=== PATIENT | female | born 1995 | race Caucasian/White ===

== ENCOUNTER 2016-08-30 11:32 | Emergency (ER) | payer OTHER ==
[2016-08-30 12:23] VITALS: BP 103/67
--- NOTE | 2016-08-30 12:43 | ED ---
Throat Pain/Nasal Congestion - HPI Summary HPI Summary: 21 yr old with 3 weeks of post nasal drip, cough and now frontal sinus pressure and pain. She has pain that is moderate behind right frontal sinus area. Pain is 4/10, and has been present now for three days, and prior to this post nasal drip and cough for a few weeks. No fever, no photophobia. - History of Current Complaint Chief Complaint: UCRespiratory Time Seen by Provider: 08/30/16 12:31 - Allergies/Home Medications Allergies/Adverse Reactions: Allergies Allergy/AdvReac Type Severity Reaction Status Date / Time No Known Allergies Allergy Verified 08/30/16 12:23 PMH/Surg Hx/FS Hx/Imm Hx Previously Healthy: Yes Infectious Disease History: No Infectious Disease History: Reports: Traveled Outside the [place] in Last 30 Days - [place] 08/2016 - Family History Known Family History: Positive: Hypertension Negative: Cardiac Disease, Diabetes - Social History Alcohol Use: Weekly Substance Use Type: Reports: Marijuana Smoking Status (MU): Never Smoked Tobacco Review of Systems Constitutional: Negative Negative: Fever, Chills Negative: Photophobia Positive: Nasal Discharge, Other - sinus pain Positive: Cough Gastrointestinal: Negative Genitourinary: Negative Musculoskeletal: Negative Skin: Negative All Other Systems Reviewed And Are Negative: Yes Physical Exam Triage Information Reviewed: Yes Vital Signs On Initial Exam: Initial Vitals Temp Pulse Resp BP Pulse Ox 97.9 F 72 16 103/67 100 08/30/16 12:20 08/30/16 12:20 08/30/16 12:20 08/30/16 12:20 08/30/16 12:20 Vital Signs Reviewed: Yes Appearance: Positive: Well-Appearing, No Pain Distress Skin: Positive: Warm Head/Face: Positive: Normal Head/Face Inspection Eyes: Positive: Normal, EOMI ENT: Positive: Normal ENT inspection, Other - tender right frontal sinus area on percussion Neck: Positive: Supple Respiratory/Lung Sounds: Positive: Clear to Auscultation, Breath Sounds Present Cardiovascular: Positive: Normal, RRR. Negative: Murmur Abdomen Description: Negative: Distended Musculoskeletal: Positive: Normal, Strength/ROM Intact Neurological: Positive: Normal, Sensory/Motor Intact, Alert, Oriented to Person Place, Time, CN Intact II-III Psychiatric: Positive: Normal Diagnostics - Vital Signs Vital Signs Temp Pulse Resp BP Pulse Ox 08/30/16 12:20 97.9 F 72 16 103/67 100 - Laboratory Lab Statement: Any lab studies that have been ordered have been reviewed, and results considered in the medical decision making process. EENT Course/Dx - Course Course Of Treatment: 21 yr old female with a few weeks of post nasal drip and now sinus pain, RX with Augmentin. [facility] office. - Diagnoses Provider Diagnoses: Sinusitis Discharge - Discharge Plan Condition: Good Disposition: HOME Prescriptions: Amoxicillin/Clavulanate TAB* [Augmentin TAB 875*] 875 mg PO BID #20 tab Patient Education Materials: Sinusitis (ED) Referrals: Non Staff,Doctor [Primary Care Provider] - [facility] [place] [facility]IAN REFERRAL [Outside]
== END 2016-08-30 12:50 | disposition home or self-care (01) ==
LOC: UCCORT 11:32
DX: J32.9 Chronic sinusitis, unspecified (principal)
CPT/HCPCS: 99212; G0463

== ENCOUNTER 2016-09-17 17:36 | Emergency (ER) | payer OTHER ==
[2016-09-17 17:53] VITALS: BP 115/57
--- NOTE | 2016-09-17 19:01 | UC ---
Throat Pain/Nasal [place] HPI - HPI Summary HPI Summary: 21 yo female with burning pain from sternum to throat vomited twice last PM had three beers and 2 shots (mixed with energy drink) no f/c - History of Current Complaint Chief Complaint: UCGeneralIllness Stated Complaint: PT STATES THROAT FELLS SWOLLEN Time Seen by Provider: 09/17/16 18:46 Hx Obtained From: Patient Hx Last Menstrual Period: 09/01/16 Onset/Duration: Gradual Onset, Lasting Hours Severity: Moderate Pain Intensity: 4 Pain Scale Used: 0-10 Numeric Cough: None - Allergies/Home Medications Allergies/Adverse Reactions: Allergies Allergy/AdvReac Type Severity Reaction Status Date / Time No Known Allergies Allergy Verified 09/17/16 17:53 Home Medications: Home Medications NK [No Home Medications Reported] 09/17/16 [History Confirmed 09/17/16] PMH/Surg Hx/FS Hx/Imm Hx Previously Healthy: Yes - Surgical History Surgical History: None - Family History Known Family History: Positive: Hypertension Negative: Cardiac Disease, Diabetes - Social History Alcohol Use: Weekly Substance Use Type: Marijuana Smoking Status (MU): Never Smoked Tobacco Review of Systems Constitutional: Negative Skin: Negative Eyes: Negative ENT: Negative Respiratory: Negative Cardiovascular: Chest Pain - burning Gastrointestinal: Negative Genitourinary: Negative Motor: Negative Neurovascular: Negative Musculoskeletal: Negative Neurological: Negative Psychological: Negative All Other Systems Reviewed And Are Negative: Yes Physical Exam Triage Information Reviewed: Yes Appearance: Well-Appearing, No Pain Distress, Well-Nourished Vital Signs: Initial Vital Signs Temp 98.5 F 09/17/16 17:49 Pulse 80 09/17/16 17:49 Resp 17 09/17/16 17:49 BP 115/57 09/17/16 17:49 Pulse Ox 100 09/17/16 17:49 Vital Signs Reviewed: Yes Eyes: Positive: Conjunctiva Clear ENT: Positive: Hearing grossly normal, Other: - hoarse. Negative: Nasal congestion, TMs normal, Tonsillar exudate, Trismus Neck: Positive: Supple, Nontender Respiratory: Positive: Lungs clear, Normal breath sounds, No respiratory distress Cardiovascular: Positive: RRR, No Murmur Abdomen Description: Positive: Nontender, No Organomegaly, Soft Musculoskeletal: Positive: Strength Intact, ROM Intact Neurological: Positive: Alert Psychological Exam: Normal Skin Exam: Normal Throat Pain/Nasal Course/Dx - Differential Dx/Diagnosis Provider Diagnoses: GERD Discharge - Discharge Plan Condition: Stable Disposition: HOME Patient Education Materials: Gastroesophageal Reflux Disease (ED) Referrals: Non Staff,Doctor [Primary Care Provider] - Additional Instructions: mylanta 30 cc (2 tablespoons) every 2 hours while awake for 2-3 days recheck if not better in 3-6 days avoid caffeine/alcohol for now
== END 2016-09-17 19:03 | disposition home or self-care (01) ==
LOC: UCCORT 17:36
DX: K21.9 Gastro-esophageal reflux disease without esophagitis (principal)
CPT/HCPCS: 99211; G0463